=== PATIENT | female | born 1990 | race Two or more races ===

== ENCOUNTER 2018-10-23 17:50 | Emergency (ER) | payer SELFPAY ==
[~2018-10-23] VITALS: Ht 157.5 cm; Wt 81.6 kg
[2018-10-23] MEDS ORDERED: IV NORMAL SALINE 1000ML BAG 1,000 ML IV SCH (18:21)
[2018-10-23] MEDS ORDERED: KETOROLAC 15 MG/ML VIAL. IV ONE (18:30)
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
[2018-10-23] MEDS ORDERED: IOHEXOL 300 MG/ML 100ML VIAL. IV ONE ×2 (19:00→21:30)
[2018-10-23] MEDS ORDERED: CONTRAST GIVEN. MC PRN ×2 (19:00→21:30)
[2018-10-23 20:23] LABS: BILIRUBIN,URINE NEGATIVE (NEG); CLARITY,URINE CLEAR; COLOR,URINE YELLOW; NITRITE,URINE NEGATIVE (NEG); PH,URINE 6.5; PROTEIN,URINE NEGATIVE (NEG-TRACE)
[2018-10-23 20:35] LABS: BACTERIA,URINE MOD /HPF (0-FEW); RBC,URINE RARE /HPF (0-2); SQUAMOUS EPITHELIAL CELL,UR MOD /LPF
[2018-10-23 20:52] LABS: BASO # 0.1 x10^3/uL (0.0-0.2); BASO % 1 % (0-3); EOS # 0.1 x10^3/uL (0.0-0.7); EOS % 1 % (0-3); HEMATOCRIT 39.3 % (36.0-47.0); HEMOGLOBIN 12.5 g/dL (12.0-15.5); LYMPH # 4.2 x10^3/uL (1.0-4.8); LYMPH % 35 % (24-48); MEAN CORPUSCULAR HEMOGLOBIN 27 pg (25-35); MEAN CORPUSCULAR HGB CONC 32 g/dL (31-37); MEAN CORPUSCULAR VOLUME 84 fL (79-100); MONO # 0.8 x10^3/uL (0.0-1.1); MONO % 7 % (0-9); NEUT # 6.9 x10^3uL (1.8-7.7); NEUT % 58 % (31-73); PLATELET COUNT 277 x10^3/uL (140-400); RED BLOOD COUNT 4.66 x10^6/uL (3.50-5.40); RED CELL DISTRIBUTION WIDTH 14.7 % (11.5-14.5)
[2018-10-23 20:54] LABS: CREATININE 0.8 mg/dL (0.6-1.0); GFR 85.4; POTASSIUM 3.9 mmol/L (3.5-5.1)
[2018-10-23 20:55] LABS: PROTHROMBIN TIME PATIENT 15.2 SEC (11.7-14.0)
[2018-10-23 21:00] LABS: ALBUMIN 3.2 g/dL (3.4-5.0); ALBUMIN/GLOBULIN RATIO 0.8 (1.0-1.7); TOTAL BILIRUBIN 0.2 mg/dL (0.2-1.0); TOTAL PROTEIN 7.1 g/dL (6.4-8.2)
[2018-10-23 21:12] LABS: CALCIUM 8.8 mg/dL (8.5-10.1)
[2018-10-23 21:18] LABS: AMPHETAMINE/METHAMPHETAMINE NEG (NEG); BARBITURATES NEG (NEG); BENZODIAZEPINES NEG (NEG); CANNABINOIDS NEG (NEG); COCAINE NEG (NEG); METHADONE NEG (NEG); OPIATES NEG (NEG); PHENCYCLIDINE NEG (NEG)
[2018-10-23 22:33] VITALS: BP 125/76
[2018-10-23] MEDS ORDERED: IBUP-1007 PO (22:51)
[2018-10-23] MEDS ORDERED: CYCL10TA2 PO (22:51)
[2018-10-24] MEDS ORDERED: IOHEXOL 300 MG/ML 100ML VIAL. ONE (03:49)
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
--- NOTE | 2018-10-24 11:05 | RAD ---
Three-view left wrist dated 10/23/2018. No comparison available. Clinical data indication: Pain after injury. FINDINGS: 3 views left wrist show normal bony alignment. No displaced fracture. No acute osseous or articular abnormality. IMPRESSION: No acute findings. Electronically signed by: Orlando Fu MD (10/23/2018 8:19 PM) [facility] Two-view right forearm and 3 view right wrist dated 10/23/2018. No comparison available. Clinical data indication: Pain after injury. FINDINGS: 2 views right forearm show normal bony alignment. No displaced fracture. No acute osseous or articular abnormality. 3 views right wrist show normal bony alignment. No displaced fracture. No acute osseous or articular abnormality. IMPRESSION: No acute findings. Electronically signed by: Orlando Fu MD (10/23/2018 8:18 PM) [facility]
--- NOTE | 2018-10-25 11:08 | RAD ---
Three-view left wrist dated 10/23/2018. No comparison available. Clinical data indication: Pain after injury. FINDINGS: 3 views left wrist show normal bony alignment. No displaced fracture. No acute osseous or articular abnormality. IMPRESSION: No acute findings. Electronically signed by: Orlando Fu MD (10/23/2018 8:19 PM) [facility] Two-view right forearm and 3 view right wrist dated 10/23/2018. No comparison available. Clinical data indication: Pain after injury. FINDINGS: 2 views right forearm show normal bony alignment. No displaced fracture. No acute osseous or articular abnormality. 3 views right wrist show normal bony alignment. No displaced fracture. No acute osseous or articular abnormality. IMPRESSION: No acute findings. Electronically signed by: Orlando Fu MD (10/23/2018 8:18 PM) [facility]
== END 2018-10-23 23:00 | disposition home or self-care (01) ==
LOC: ER 17:50
DX: R07.89 Other chest pain (principal); R10.9 Unspecified abdominal pain; R51 Headache; M25.532 Pain in left wrist; M25.531 Pain in right wrist; M79.631 Pain in right forearm; M79.604 Pain in right leg; M54.2 Cervicalgia; V43.52XA Car driver injured in collision with other type car in traffic accident, initial encounter; Y93.89 Activity, other specified; Y92.410 Unspecified street and highway as the place of occurrence of the external cause; Y99.8 Other external cause status
CPT/HCPCS: 36415; 70450; 71260; 72125; 73090; 73110; 73590; 74177; 80053; 80307; 81001; 81025; 83690; 85025; 85610; 85730; 86850; 86900; 86901; 96374; 99285; G0480; J1885; J7030; Q9967